=== PATIENT | female | born 1995 | race American Indian/Alaskan Native ===

== ENCOUNTER 2020-01-19 08:57 | Emergency (ER) | payer SELFPAY ==
--- NOTE | 2020-01-19 11:31 | Emergency Department Report ---
ED Female HPI - General Chief complaint: Urogenital-Female Stated complaint: VAGINAL DISCHARGE Time Seen by Provider: 01/19/20 11:17 Source: patient Mode of arrival: Ambulatory Limitations: No Limitations - History of Present Illness Initial comments: Patient is a 24-year-old female presents emergency room complaints of brown vaginal discharge that began 5 days ago. She states that she has had mild pelvic discomfort but that has improved. She states that she also needs a prescription for valacyclovir as she reports she is having an outbreak of her herpes. She denies any dysuria, fever, vomiting, diarrhea, back pain. She denies any other past medical history. No allergies to medications. Menstrual cycle December 31. She states that she does not have a primary care doctor or S[employer] COLLECTOR that she is seen secondary to lack of insurance per patient. - Related Data Previous Rx's Medication Instructions Recorded Last Taken Type Valacyclovir HCl [Valacyclovir] 500 mg PO BID 3 Days #6 tablet 01/19/20 Unknown Rx metroNIDAZOLE [Flagyl] 500 mg PO BID 7 Days #14 tab 01/19/20 Unknown Rx Allergies Allergy/AdvReac Type Severity Reaction Status Date / Time No Known Allergies Allergy Unverified 01/19/20 09:06 ED Review of Systems ROS: Stated complaint: VAGINAL DISCHARGE Other details as noted in HPI Comment: All other systems reviewed and negative ED Past Medical Hx - Past Medical History Previous Medical History?: No - Surgical History Past Surgical History?: No - Medications Home Medications: Home Medications Medication Instructions Recorded Confirmed Last Taken Type Valacyclovir HCl [Valacyclovir] 500 mg PO BID 3 Days #6 tablet 01/19/20 Unknown Rx metroNIDAZOLE [Flagyl] 500 mg PO BID 7 Days #14 tab 01/19/20 Unknown Rx ED Physical Exam - General Limitations: No Limitations General appearance: alert, in no apparent distress - Head Head exam: Present: atraumatic, normocephalic - Eye Eye exam: Present: normal appearance - ENT ENT exam: Present: mucous membranes moist - Respiratory Respiratory exam: Present: normal lung sounds bilaterally. Absent: respiratory distress, wheezes, rales, rhonchi, stridor, chest wall tenderness, accessory muscle use, decreased breath sounds, prolonged expiratory - Cardiovascular Cardiovascular Exam: Present: regular rate, normal rhythm, normal heart sounds. Absent: systolic murmur, diastolic murmur, rubs, gallop - GI/Abdominal GI/Abdominal exam: Present: soft, normal bowel sounds. Absent: distended, tenderness, guarding, rebound, rigid - External exam: Present: other (shallow ulcerations present at the opening of the vaginal canal and partially on the perineum region) Speculum exam: Present: vaginal discharge (thick brown/white), cervical discharge (thick brown/white), other (synthetic department supervisor: VAISHNAVI Li). Absent: vaginal bleeding, foreign body, tissue, laceration Bi-manual exam: Present: normal bi-manual exam. Absent: cervical motion tendernes, adnexal tenderness, adnexal mass - Neurological Exam Neurological exam: Present: alert, oriented X3 - Psychiatric Psychiatric exam: Present: normal affect, normal mood - Skin Skin exam: Present: warm, dry, intact ED Course Vital Signs 01/19/20 01/19/20 09:07 14:28 Temperature 98.3 F Pulse Rate 72 80 Respiratory 16 18 Rate Blood Pressure 108/64 Blood Pressure 138/68 [Left] O2 Sat by Pulse 99 100 Oximetry ED Medical Decision Making - Lab Data Lab Results 01/19/20 Range/Units Unknown Urine Color Yellow (Yellow) Urine Turbidity Clear (Clear) Urine pH 6.0 (5.0-7.0) Ur Specific [place] 1.016 (1.003-1.030) Urine Protein <15 mg/dl (Negative) mg/dL Urine Glucose (UA) Neg (Negative) mg/dL Urine Ketones Neg (Negative) mg/dL Urine Blood Neg (Negative) Urine Nitrite Neg (Negative) Urine Bilirubin Neg (Negative) Urine Urobilinogen < 2.0 (<2.0) mg/dL Ur Leukocyte Esterase Neg (Negative) Urine WBC (Auto) 1.0 (0.0-6.0) /HPF Urine RBC (Auto) 2.0 (0.0-6.0) /HPF U Epithel Cells (Auto) 6.0 (0-13.0) /HPF Urine Bacteria (Auto) 1+ (Negative) /HPF Urine Mucus Few /HPF Urine HCG, Qual Negative (Negative) - Medical Decision Making Patient is a 24-year-old female presents emergency room complaints of brown vaginal discharge that began 5 days ago. She states that she has had mild pelvic discomfort but that has improved. She states that she also needs a prescription for valacyclovir as she reports she is having an outbreak of her herpes. She denies any dysuria, fever, vomiting, diarrhea, back pain. She denies any other past medical history. No allergies to medications. Menstrual cycle December 31. She states that she does not have a primary care doctor or S[employer] COLLECTOR that she is seen secondary to lack of insurance per patient. Vitals are normal. No abdominal tenderness on exam, no guarding, no rebound, no rigidity, pelvic examination synthetic department supervisor: VAISHNAVI Li, shallow ulcerations present at the op ening of the vaginal canal and partially on the perineum region, thick brown/white vaginal/cervical discharge, no CMT, no adnexal tenderness or masses. Examination appears consistent with genital herpes outbreak. UA is within normal limits. Urine is negative. Wet prep shows evidence of BV. G/C swab sent. Offered patient prophylactic treatment for G/E and she states that she would like treatment. Patient given ceftriaxone and azithromycin while in the emergency department. Patient given prescription for valacyclovir and Flagyl. Discussed all results with patient and answered questions. Advised patient Please take medication as prescribed. 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 Please follow-up with the health department, clinic, or SAMPLE COLLECTOR for full STD panel. Please have any partner tested and treated as well. Do not engage in sexual intercourse. Return to the emergency room for any new or worsening symptoms. - Differential Diagnosis Metromenorrhagia, UTI, STD, BV, yeast Critical care attestation.: If time is entered above; I have spent that time in minutes in the direct care of this critically ill patient, excluding procedure time. ED Disposition Clinical Impression: Bacterial vaginosis Genital herpes Qualifiers: Herpes simplex infection site: perianal skin Qualified Code(s): A60.1 - Herpes viral infection of perianal skin and rectum Disposition: - TO HOME OR SELFCARE Is pt being admited?: No Does the pt Need Aspirin: No Condition: Stable Instructions: Bacterial Vaginosis (ED), Genital Herpes Simplex (ED) Additional Instructions: Please take medication as prescribed. 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 Please follow-up with the health department, clinic, or SAMPLE COL[employer]OR for full STD panel. Please have any partner tested and treated as well. Do not engage in sexual intercourse. Return to the emergency room for any new or worsening symptoms. Prescriptions: metroNIDAZOLE [Flagyl] 500 mg PO BID 7 Days #14 tab Valacyclovir HCl [Valacyclovir] 500 mg PO BID 3 Days #6 tablet Referrals: [facility] [Provider Group] - 2-3 Days AURELIANO ROBLEDO MD [Staff Physician] - 2-3 Days [facility] [Outside] - 2-3 Days [facility], [LAB/CONTRACT] - 2-3 Days BALA HERRING MD [Staff Physician] - 2-3 Days Forms: STI Treatment and Prevention Time of Disposition: 13:58 Print Language: PORTUGUESE
[2020-01-19 11:56] LABS: Bacteria,Urine 1+ /HPF (Negative); Bilirubin,Urine NEG (Negative); Blood,Urine NEG (Negative); Color,Urine Yellow (Yellow); Mucus,Urine FEW /HPF; Protein,Urine <15 mg/dL mg/dL (Negative); Urobilinogen,Urine < 2.0 mg/dL (<2.0)
[2020-01-19 11:57] LABS: HCG Qualitative,Urine Negative (Negative)
[2020-01-19] MEDS ORDERED: LIDOCAINE-MPF (1%) 10 MG/1 ML VIAL 5 ML INFILTRATI ONE (13:19)
[2020-01-19] MEDS ORDERED: AZITHROMYCIN 250 MG TAB PO ONE (13:19)
[2020-01-19 14:29] VITALS: BP 138/68
== END 2020-01-19 14:28 | disposition home or self-care (01) ==
LOC: ED 08:57
DX: N76.0 Acute vaginitis (principal); B96.89 Other specified bacterial agents as the cause of diseases classified elsewhere; A60.09 Herpesviral infection of other urogenital tract; Z79.899 Other long term (current) drug therapy
CPT/HCPCS: 81001; 81025; 87210; 87591; 96372; 99284; J0696

== ENCOUNTER 2020-02-09 19:38 | Emergency (ER) | payer SELFPAY ==
[2020-02-09 20:15] VITALS: BP 116/68
--- NOTE | 2020-02-09 21:11 | Emergency Department Report ---
ED General Adult HPI - General Chief complaint: Urogenital-Female Stated complaint: MED REFILL Time Seen by Provider: 02/09/20 21:08 Source: patient Mode of arrival: Ambulatory Limitations: No Limitations - History of Present Illness Initial comments: Patient is a 24-year-old female presents emergency room complaints of a genital herpes outbreak that began 2 days ago. She states that she typically takes acyclovir for her herpes outbreak. She states that she does not have a primary care doctor but went to a clinic a month ago. She states that she moved here recently and does not have anyone to see. She denies any dysuria, nausea, vomiting, diarrhea, fever, abdominal pain. No past medical history. No allergies to medications. Last menstrual cycle January 25, 2020. - Related Data Previous Rx's Medication Instructions Recorded Last Taken Type Valacyclovir HCl [Valacyclovir] 500 mg PO BID 3 Days #6 tablet 01/19/20 Unknown Rx metroNIDAZOLE [Flagyl] 500 mg PO BID 7 Days #14 tab 01/19/20 Unknown Rx Acyclovir 400 mg PO TID 5 Days #15 tablet 02/09/20 Unknown Rx Allergies Allergy/AdvReac Type Severity Reaction Status Date / Time No Known Allergies Allergy Unverified 01/19/20 09:06 ED Review of Systems ROS: Stated complaint: MED REFILL Other details as noted in HPI Comment: All other systems reviewed and negative ED Past Medical Hx - Past Medical History Previous Medical History?: Yes Additional medical history: Genital Herpes - Surgical History Past Surgical History?: No - Social History Smoking Status: Never Smoker Substance Use Type: None - Medications Home Medications: Home Medications Medication Instructions Recorded Confirmed Last Taken Type Valacyclovir HCl [Valacyclovir] 500 mg PO BID 3 Days #6 tablet 01/19/20 Unknown Rx metroNIDAZOLE [Flagyl] 500 mg PO BID 7 Days #14 tab 01/19/20 Unknown Rx Acyclovir 400 mg PO TID 5 Days #15 tablet 02/09/20 Unknown Rx ED Physical Exam - General Limitations: No Limitations General appearance: alert, in no apparent distress - Head Head exam: Present: atraumatic, normocephalic - Eye Eye exam: Present: normal appearance - ENT ENT exam: Present: mucous membranes moist - Respiratory Respiratory exam: Absent: respiratory distress, accessory muscle use - GI/Abdominal GI/Abdominal exam: Present: soft. Absent: distended, tenderness, guarding, rebound, rigid - External exam: Present: other (pt deferred) - Neurological Exam Neurological exam: Present: alert, oriented X3 - Psychiatric Psychiatric exam: Present: normal affect, normal mood - Skin Skin exam: Present: warm, dry, intact ED Course Vital Signs 02/09/20 20:11 Temperature 97.8 F Pulse Rate 66 Respiratory 18 Rate Blood Pressure 116/68 O2 Sat by Pulse 100 Oximetry ED Medical Decision Making - Medical Decision Making Patient is a 24-year-old female presents emergency room complaints of a genital herpes outbreak that began 2 days ago. She states that she typically takes acyclovir for her herpes outbreak. She states that she does not have a primary care doctor but went to a clinic a month ago. She states that she moved here recently and does not have anyone to see. She denies any dysuria, nausea, vomiting, diarrhea, fever, abdominal pain. No past medical history. No allergies to medications. Last menstrual cycle January 25, 2020. Vitals are normal. Patient is presenting for medication prescription for her genital herpes outbreak. Patient given prescription for acyclovir. Advised patient Please take medication as prescribed. Please follow-up with a primary care doctor. Return to emergency room for any new or worsening symptoms. Critical care attestation.: If time is entered above; I have spent that time in minutes in the direct care of this critically ill patient, excluding procedure time. ED Disposition Clinical Impression: Genital herpes Qualifiers: Herpes simplex infection site: unspecified Qualified Code(s): A60.00 - Herpesviral infection of urogenital system, unspecified Disposition: TO HOME OR SELFCARE Is pt being admited?: No Does the pt Need Aspirin: No Condition: Stable Instructions: Genital Herpes Simplex (ED) Additional Instructions: Please take medication as prescribed. Please follow-up with a primary care doctor. Return to emergency room for any new or worsening symptoms. Prescriptions: Acyclovir 400 mg PO TID 5 Days #15 tablet Referrals: ALYSE TOVAR MD [Primary Care Provider] - 2-3 Days [facility] [Outside] - 2-3 Days [facility], [LAB/CONTRACT] - 2-3 Days [facility] [Provider Group] - 2-3 Days AURELIANO ROBLEDO MD [Staff Physician] - 2-3 Days Time of Disposition: 21:10 Print Language: MAURITIAN
== END 2020-02-09 21:30 | disposition home or self-care (01) ==
LOC: ED 19:38
DX: A60.00 Herpesviral infection of urogenital system, unspecified (principal); Z79.899 Other long term (current) drug therapy
CPT/HCPCS: 99282

== ENCOUNTER 2020-11-30 14:54 | Emergency (ER) | payer SELFPAY ==
[2020-11-30 16:05] VITALS: BP 115/65
[2020-11-30 16:42] LABS: Basophils % (Auto) 0.8 % (0.0-1.8); Eosinophils # (Auto) 0.2 K/mm3 (0.0-0.4); Hemoglobin 13.3 gm/dl (10.1-14.3); Lymphocytes # (Auto) 1.9 K/mm3 (1.2-5.4); Lymphocytes % (Auto) 31.2 % (13.4-35.0); Mean Corpuscular HGB Conc 33 % (30-34); Mean Corpuscular Volume 87 fl (79-97); Monocytes # (Auto) 0.7 K/mm3 (0.0-0.8); Monocytes % (Auto) 11.9 % (0.0-7.3); Platelet Count 191 K/mm3 (140-440); Red Cell Distribution Width 13.9 % (13.2-15.2)
[2020-11-30 16:56] LABS: Alanine Aminotransferase 20 units/L (7-56); Albumin 4.3 g/dL (3.9-5); BUN/Creatinine Ratio 17; Blood Urea Nitrogen 15 mg/dL (7-17); Hemolysis Index 5
[2020-11-30 16:56] LABS: Bilirubin,Urine NEG (Negative); Blood,Urine NEG (Negative); Color,Urine Yellow (Yellow); Mucus,Urine 2+ /HPF; Protein,Urine <15 mg/dL mg/dL (Negative); Urobilinogen,Urine < 2.0 mg/dL (<2.0)
--- NOTE | 2020-11-30 19:16 | Emergency Department Report ---
ED Abdominal Pain HPI - General Chief Complaint: Abdominal Pain Stated Complaint: ABD PAIN/DISCHARGE/ODOR PUI?: No Time Seen by Provider: 11/30/20 19:07 Source: patient Mode of arrival: Ambulatory Limitations: No Limitations - History of Present Illness Initial Comments: Is a pleasant 25-year-old female who presents the emergency department chief complaint of generalized intermittent abdominal pain over the past 2 weeks with associated clear copious vaginal discharge. She reports it started prior to her period last week and then when her period ended it was still going on. States it does have a slight odor. She states she is not particularly concerned about any STDs but would like to be checked. She denies any known past medical history, current medication use or known allergies to medications. She denies any associated fever, chills, night sweats, headache, dizziness, blurry vision, nausea, vomit, diarrhea, chest pain, shortness of breath, weakness or any other associated symptoms. - Related Data Previous Rx's Medication Instructions Recorded Last Taken Type Valacyclovir HCl [Valacyclovir] 500 mg PO BID 3 Days #6 tablet 01/19/20 Unknown Rx metroNIDAZOLE [Flagyl] 500 mg PO BID 7 Days #14 tab 01/19/20 Unknown Rx Acyclovir 400 mg PO TID 5 Days #15 tablet 02/09/20 Unknown Rx DOXYCYCLINE Hyclate [Vibramycin 100 mg PO Q12HR #20 capsule 11/30/20 Unknown Rx CAP] Naproxen [Naprosyn] 500 mg PO BID #20 tablet 11/30/20 Unknown Rx Allergies Allergy/AdvReac Type Severity Reaction Status Date / Time No Known Allergies Allergy Unverified 01/19/20 09:06 ED Review of Systems ROS: Stated complaint: ABD PAIN/DISCHARGE/ODOR Other details as noted in HPI Comment: All other systems reviewed and negative Constitutional: denies: chills, fever Eyes: denies: eye pain, eye discharge, vision change ENT: denies: ear pain, throat pain Respiratory: denies: cough, shortness of breath, wheezing Cardiovascular: denies: chest pain, palpitations Endocrine: no symptoms reported Gastrointestinal: as per HPI, abdominal pain. denies: nausea, diarrhea Genitourinary: as per HPI, discharge. denies: urgency, dysuria Musculoskeletal: denies: back pain, joint swelling, arthralgia Skin: denies: rash, lesions Neurological: denies: headache, weakness, paresthesias Psychiatric: denies: anxiety, depression Hematological/Lymphatic: denies: easy bleeding, easy bruising ED Past Medical Hx - Past Medical History Previous Medical History?: No Additional medical history: Genital Herpes - Surgical History Past Surgical History?: No - Social History Smoking Status: Never Smoker Substance Use Type: None - Medications Home Medications: Home Medications Medication Instructions Recorded Confirmed Last Taken Type Valacyclovir HCl [Valacyclovir] 500 mg PO BID 3 Days #6 tablet 01/19/20 Unknown Rx metroNIDAZOLE [Flagyl] 500 mg PO BID 7 Days #14 tab 01/19/20 Unknown Rx Acyclovir 400 mg PO TID 5 Days #15 tablet 02/09/20 Unknown Rx DOXYCYCLINE Hyclate [Vibramycin 100 mg PO Q12HR #20 capsule 11/30/20 Unknown Rx CAP] Naproxen [Naprosyn] 500 mg PO BID #20 tablet 11/30/20 Unknown Rx ED Physical Exam - General Limitations: No Limitations General appearance: alert, in no apparent distress - Head Head exam: Present: atraumatic, normocephalic - Eye Eye exam: Present: normal appearance, PERRL, EOMI Pupils: Present: normal accommodation - ENT ENT exam: Present: normal exam, normal orophraynx, mucous membranes moist, TM's normal bilaterally - Neck Neck exam: Present: normal inspection, full ROM. Absent: tenderness, meningismus - Respiratory Respiratory exam: Present: normal lung sounds bilaterally. Absent: respiratory distress, wheezes, rales, rhonchi, stridor - Cardiovascular Cardiovascular Exam: Present: regular rate, normal rhythm, normal heart sounds. Absent: systolic murmur, diastolic murmur, rubs, gallop - GI/Abdominal GI/Abdominal exam: Present: soft, normal bowel sounds. Absent: distended, tenderness, guarding, rebound, rigid - External exam: Present: normal external exam, other (chaperoned by ruby DE SOUZA). Absent: erythema, swelling, lesions, lacerations, ecchymosis Speculum exam: Present: normal speculum exam. Absent: erythema, vaginal discharge, cervical discharge, vaginal bleeding, foreign body Bi-manual exam: Present: normal bi-manual exam. Absent: cervical motion tendernes, adnexal tenderness, adnexal mass - Extremities Exam Extremities exam: Present: normal inspection, full ROM, normal capillary refill. Absent: tenderness, calf tenderness - Back Exam Back exam: Present: normal inspection, full ROM. Absent: tenderness, CVA tenderness (R), CVA tenderness (L) - Neurological Exam Neurological exam: Present: alert, oriented X3, normal gait - Psychiatric Psychiatric exam: Present: normal affect, normal mood - Skin Skin exam: Present: warm, dry, intact, normal color. Absent: rash ED Course Vital Signs 11/30/20 11/30/20 16:04 20:40 Temperature 98.6 F Pulse Rate 76 Respiratory 16 Rate Blood Pressure 115/65 O2 Sat by Pulse 100 98 Oximetry ED Medical Decision Making - Lab Data Result diagrams: 11/30/20 16:24 11/30/20 16:24 - Medical Decision Making Patient nontoxic in no acute distress. Vital signs are stable. Pelvic exam was unremarkable. Labs and urine were unremarkable. Abdominal exam was benign. The patient was given Rocephin and azithromycin and will be discharged home with doxycycline and Naprosyn and recommended outpatient follow-up with her [employer] and primary care doctor. Return to the emerge department any change or worsening symptoms. She verbalized understand the diagnosis, treatment and follow-up instructions and all of her questions were answered. - Differential Diagnosis UTI, cervicitis, colitis, entertitis Critical care attestation.: If time is entered above; I have spent that time in minutes in the direct care of this critically ill patient, excluding procedure time. ED Disposition Clinical Impression: Cervicitis, Nonspecific abdominal pain Disposition: 01 HOME / SELF CARE / HOMELESS Is pt being admited?: No Condition: Stable Instructions: Abdominal Pain (ED), Cervicitis (ED), Cervicitis Prescriptions: Naproxen [Naprosyn] 500 mg PO BID #20 tablet DOXYCYCLINE Hyclate [Vibramycin CAP] 100 mg PO Q12HR #20 capsule Referrals: PRIMARY CAREMD [Primary Care Provider] - 3-5 Days [facility] [Provider Group] - 3-5 Days [facility] [Outside] - 3-5 Days Forms: STI Treatment and Prevention Time of Disposition: 21:34
[2020-11-30] MEDS ORDERED: LIDOCAINE-MPF (1%) 10 MG/1 ML VIAL 5 ML INFILTRATI ONE (21:12)
[2020-11-30] MEDS ORDERED: AZITHROMYCIN 250 MG TAB PO ONE (21:12)
== END 2020-11-30 22:07 | disposition home or self-care (01) ==
LOC: ED 14:54
DX: N72 Inflammatory disease of cervix uteri (principal); R10.84 Generalized abdominal pain; Z79.899 Other long term (current) drug therapy
CPT/HCPCS: 36415; 80053; 81001; 84702; 85025; 87210; 87591; 96372; 99284; J0696